=== PATIENT | female | born 1955 | race Caucasian/White ===

== ENCOUNTER 2024-03-07 09:00 | Day surgery (SDC) | payer MEDICARE, OTHER ==
[2024-03-07] MEDS ORDERED: Acetaminophen/Codeine 300-30 MG Tab PO PRN (09:15)
[2024-03-07] MEDS ORDERED: Ondansetron 4 MG/2 ML SDV IVPUSH PRN (09:15)
[2024-03-07] MEDS ORDERED: Acetaminophen 325 MG Tab PO PRN (09:15)
[2024-03-07] MEDS: Sodium Chloride 0.9% 10 ML Syringe FLUSH PRN (09:19)
[2024-03-07] MEDS: Proparacaine 0.5% Ophth Soln 15 ML Bottle EYELF ONE ×3 (09:35→10:20)
[2024-03-07] MEDS: Moxifloxacin 0.5% Ophth Soln 3 ML Bottle EYELF ONE (09:37)
[2024-03-07] MEDS: Povidone-Iodine 5% Sterile Ophth Soln 30 ML Bottle EYELF ONE ×3 (09:37→10:20)
[2024-03-07] MEDS: Tropicamide 1% Ophth Soln 15 ML Bottle EYELF ONE (09:39)
[2024-03-07] MEDS: Timolol Maleate 0.5% Ophth Soln 5 ML Bottle EYELF ONE (09:40)
[2024-03-07] MEDS: Phenylephrine 10% Ophth Soln 5 ML Bot EYELF ONE (09:40)
[2024-03-07] MEDS: Cataract Ophth Solution EYELF ONE (09:41)
[2024-03-07] MEDS: Lidocaine 1% 30 ML SDV ONE ×2 (10:06→10:30)
[2024-03-07] MEDS: Apraclonidine 0.5% Ophth Soln 5 ML Bot EYELF ONE ×2 (10:07→10:34)
[2024-03-07] MEDS: Vancomycin 500 MG SDV EYELF ONE ×2 (10:07→10:31)
[2024-03-07] MEDS: Diclofenac Sodium 0.1% Ophth Soln 5 ML Bottle EYELF ONE ×2 (10:08→10:34)
[2024-03-07] MEDS: Dexamethasone/Neomycin/Polymyxin B Ophth Oint 3.5 GM Tube EYELF ONE ×2 (10:09→10:35)
== END 2024-03-07 11:10 | disposition home or self-care (01) ==
LOC: DL.SDS 09:00
PROVIDERS: ATTEND Ophthalmology
DX: E11.36 Type 2 diabetes mellitus with diabetic cataract (principal); H25.812 Combined forms of age-related cataract, left eye; E78.5 Hyperlipidemia, unspecified; I10 Essential (primary) hypertension; R79.89 Other specified abnormal findings of blood chemistry; F40.10 Social phobia, unspecified; Z79.899 Other long term (current) drug therapy; Z79.84 Long term (current) use of oral hypoglycemic drugs; Z79.82 Long term (current) use of aspirin; Z88.8 Allergy status to other drugs, medicaments and biological substances
CPT/HCPCS: 00142; A9270-GY; J3370; J3490; V2632

== ENCOUNTER 2024-03-21 08:49 | Day surgery (SDC) | payer MEDICARE, OTHER ==
[2024-03-21] MEDS: Povidone-Iodine 5% Sterile Ophth Soln 30 ML Bottle EYERT ONE ×3 (07:02→09:28)
[2024-03-21] MEDS: Proparacaine 0.5% Ophth Soln 15 ML Bottle EYERT ONE ×3 (07:02→09:28)
[2024-03-21] MEDS: Vancomycin 500 MG SDV EYERT ONE ×2 (07:03→09:41)
[2024-03-21] MEDS: Lidocaine 1% 30 ML SDV ONE ×2 (07:03→09:41)
[2024-03-21] MEDS: Apraclonidine 0.5% Ophth Soln 5 ML Bot EYERT ONE ×2 (07:04→09:43)
[2024-03-21] MEDS: Dexamethasone/Neomycin/Polymyxin B Ophth Oint 3.5 GM Tube EYERT ONE ×2 (07:05→09:44)
[2024-03-21] MEDS: Diclofenac Sodium 0.1% Ophth Soln 5 ML Bottle EYERT ONE ×2 (07:05→09:43)
[2024-03-21] MEDS ORDERED: Acetaminophen 325 MG Tab PO PRN (09:00)
[2024-03-21] MEDS ORDERED: Acetaminophen/Codeine 300-30 MG Tab PO PRN (09:00)
[2024-03-21] MEDS ORDERED: Ondansetron 4 MG/2 ML SDV IVPUSH PRN (09:00)
[2024-03-21] MEDS: Sodium Chloride 0.9% 10 ML Syringe FLUSH PRN (09:11)
[2024-03-21] MEDS: Moxifloxacin 0.5% Ophth Soln 3 ML Bottle EYERT ONE (09:20)
[2024-03-21] MEDS: Tropicamide 1% Ophth Soln 15 ML Bottle EYERT ONE (09:20)
[2024-03-21] MEDS: Timolol Maleate 0.5% Ophth Soln 5 ML Bottle EYERT ONE (09:21)
[2024-03-21] MEDS: Phenylephrine 10% Ophth Soln 5 ML Bot EYERT ONE (09:21)
[2024-03-21] MEDS: Cataract Ophth Solution EYERT ONE (09:21)
== END 2024-03-21 10:24 | disposition home or self-care (01) ==
LOC: DL.SDS 08:49
PROVIDERS: ATTEND Ophthalmology
DX: E11.36 Type 2 diabetes mellitus with diabetic cataract (principal); H26.8 Other specified cataract; I10 Essential (primary) hypertension; F40.10 Social phobia, unspecified; E78.5 Hyperlipidemia, unspecified; F17.210 Nicotine dependence, cigarettes, uncomplicated; Z79.84 Long term (current) use of oral hypoglycemic drugs; Z79.82 Long term (current) use of aspirin; Z79.899 Other long term (current) drug therapy
CPT/HCPCS: A9270-GY; J3370; J3490; V2632